=== PATIENT | male | born 1960 ===

== ENCOUNTER 2024-08-07 14:26 | Outpatient (CLI) | payer MEDICARE ==
--- NOTE | 2024-08-08 04:49 | RADIOLOGY REPORT ---
CT Chest without intravenous contrast INDICATION: Lung cancer screening. TECHNIQUE: Multidetector spiral CT of the chest was performed from the lung apices to the upper abdom en utilizing axial images. Coronal and sagittal multiplanar reformats were performed. Radiation Dose : 1. Chest: CTDI volume is 3.7 mGy. Dose-length product is 128 mGy*cm The dose indicators for CT are the volume Computed Tomography (CT) Dose Index (CTDIvol) and the Dose Length Product (DLP), and are measured in units of mGy and mGy-cm, respectively. These indicators are not patient dose, but values generated from the CT scanner acquisition factors. The report includes radiation exposure data for exposures received during this examination. Comparison: None Findings: Lower neck: Unremarkable thyroid Lungs: No suspicious pulmonary nodules. Left upper lobe bleb adjacent to the aortic arch. Central airways: Patent. Pleura: No pleural effusions. No pneumothorax Heart/Vascular Structures: The heart is normal in size. No pericardial effusion. There are coronar y artery calcifications. Normal caliber thoracic aorta. The main pulmonary artery is normal in jennifer tiff[place]. Lymph Nodes: No adenopathy Musculoskeletal: Fractures of the right 8th and 9th ribs with evidence of healing. No fracture or alban picious bone lesions. Body wall: Unremarkable Upper abdomen: Unremarkable. IMPRESSION: 1. No evidence of suspicious lung nodules. Lung-RADS: Category 1: Recommendation: Continue annual screening with LDCT [email or web address]
== END 2024-08-07 23:59 | disposition home or self-care (01) ==
LOC: RAD 14:26
PROVIDERS: ATTEND Nurse Practitioner Family
DX: Z12.2 Encounter for screening for malignant neoplasm of respiratory organs (principal); S22.41XD Multiple fractures of ribs, right side, subsequent encounter for fracture with routine healing; F17.210 Nicotine dependence, cigarettes, uncomplicated; I25.10 Atherosclerotic heart disease of native coronary artery without angina pectoris; X58.XXXD Exposure to other specified factors, subsequent encounter
CPT/HCPCS: 71271